=== PATIENT | female | born 1975 | race Hispanic/Latino ===

== ENCOUNTER 2022-08-30 14:30 | Outpatient (CLI) | payer BC | END 2022-08-30 14:31 | disposition home or self-care (01) | LOC: CSHMAMMO 14:30 | PROVIDERS: ATTEND Family Medicine | DX: Z12.31 Encounter for screening mammogram for malignant neoplasm of breast (principal) | CPT/HCPCS: 77063; 77067 ==

== ENCOUNTER 2023-10-28 14:09 | Outpatient (CLI) | payer BC | END 2023-10-28 14:10 | disposition home or self-care (01) | LOC: CSHULT 14:09 | PROVIDERS: ATTEND Otolaryngology Plastic Surgery within the Head & Neck | DX: E04.1 Nontoxic single thyroid nodule (principal) | CPT/HCPCS: 76536 ==

== ENCOUNTER 2023-11-28 13:02 | Outpatient (CLI) | payer BC | END 2023-11-28 13:03 | disposition home or self-care (01) | LOC: CSHMAMMO 13:02 | PROVIDERS: ATTEND Family Medicine | DX: Z12.31 Encounter for screening mammogram for malignant neoplasm of breast (principal) | CPT/HCPCS: 77063; 77067 ==

== ENCOUNTER 2023-12-06 13:50 | Outpatient (CLI) | payer BC | END 2023-12-06 13:51 | disposition home or self-care (01) | LOC: CSHMAMMO 13:50 | PROVIDERS: ATTEND Family Medicine | DX: R92.2 Inconclusive mammogram (principal); N60.01 Solitary cyst of right breast | CPT/HCPCS: G0279 ==